=== PATIENT | male | born 1975 | race Caucasian/White ===

== ENCOUNTER 2019-01-04 14:14 | Inpatient (IN) | payer MEDICAID, OTHER ==
--- NOTE | 2019-01-04 14:10 | EDPHY ---
H & P Time Seen by Provider: 01/04/19 14:15 Constitutional: Initial Vital Signs Temperature (C) 36.7 C 01/04/19 14:14 Heart Rate 154 H 01/04/19 14:14 Respiratory Rate 24 H 01/04/19 14:14 Blood Pressure 109/82 H 01/04/19 14:14 O2 Sat (%) 100 01/04/19 14:14 O2 Delivery Mode Room Air Allergies/Adverse Reactions: No Known Allergies Allergy (Unverified 01/04/19 14:34) Home Medications: Medication Instructions Recorded NK [No Known Home Meds] 05/17/18 Medical Decision Making - Diagnostics Imaging: I viewed and interpreted images myself ED Course/Re-evaluation: CHIEF COMPLAINT: Alcohol withdrawal, vomiting blood HISTORY OF PRESENT ILLNESS: The patient is a 43 y/o male with a history of alcoholism complaining of alcohol withdrawal symptoms and vomiting blood. The patient reports that he drinks a pint of whisky daily, but stopped drinking 2 days ago. After stopping drinking, he started vomiting coffee ground blood and had black/tarry diarrhea. Due to these symptoms he called EMS. While en route to the hospital he was given 4mg IV Zofran and IV NS. No fever, headache, chest pain, heart palpitations, shortness of breath, cough, urinary complaints, numbness, paresthesias. REVIEW OF SYSTEMS: A comprehensive 10 system review of systems is otherwise negative aside from elements mentioned in the history of present illness and medical decision making. PHYSICAL EXAM: General Appearance: Pale/ashen and diaphoretic. Head: Atraumatic without scalp tenderness or obvious injury Eyes: Pale and sunken eyes. Pupils equal, round, reactive to light and accommodation, EOMI, no trauma, no injection. Ears: Clear bilaterally, no perforation, normal landmarks Nose: Atraumatic, no rhinorrhea, clear. Throat: Dried bloods on lips. There is no erythema or exudates, no lesions, normal tonsils, mucus membranes moist. Neck: Supple, 2+ carotid upstroke, nontender, no lymphadenopathy. Respiratory: No retractions, no distress, no wheezes, and no accessory muscle use. Lungs are clear to auscultation bilaterally. Cardiovascular: Tachycardic, no murmurs, rubs, or gallops. Bilateral carotid, radial, dorsalis pedis, and posterior tibial pulses intact. Good capillary refill all extremities. Gastrointestinal: Abdomen is soft, nontender, non-distended, no masses, no rebound, no guarding, no peritoneal signs. Musculoskeletal: Normal active ROM of all extremities, atraumatic. Neurological: Lethargic. The patient has normal DTRs and non-focal cranial nerves, motor, sensory, and cerebellar exam. Skin: No rashes, good turgor, no nodules on palpation. PAST MEDICAL HISTORY: Alcoholism and depression PAST SURGICAL HISTORY: Denies SOCIAL HISTORY: Lives in [place], single, employed DIAGNOSTICS/PROCEDURES/CRITICAL CARE TIME: Not indicated. DIFFERENTIAL DIAGNOSIS: The differential diagnosis for the patient's upper GI bleeding included but was not limited to normocytic anemia, ulcer disease, gastritis, Aby-Mejia tear, and esophageal varices. The differential diagnosis for the patient's elevated blood sugar included but was not limited to new onset diabetes, DKA. MEDICAL DECISION MAKING: The patient is a 43 y/o male with a history of alcoholism presenting with alcohol withdrawal symptoms and vomiting blood. The patient reports that he drinks a pint of whisky daily, but stopped drinking 2 days ago. After stopping drinking, he started vomiting coffee ground blood and had black/tarry diarrhea. On exam he is pale/ashen, diaphoretic, has dried blood on his lips, and sunken eyes. I suspect this patient has an upper GI bleed due to alcoholic gastritis. Labs ordered; patient will be type and screened. 1L IV NS, 80mg IV Protonix and 1mg IV Ativan administered. I have discussed the likelihood of needing to be admitted for the gastric bleed, the patient is comfortable with this plan. 1415: I met EMS upon arrival. 1435: Patient's hematocrit is 11.8 and his hemoglobin is 34.3. Patient's BGL is 310, he could have alcoholic ketoacidosis. 1548: Patient has normocytic anemia, hyponatremia, and an elevated BUN. Patient' s lipase is unremarkable, there is no sign of pancreatitis. Patient will need to be admitted; I have paged the hospitalist. Patient is hemodynamically stable. 1550: I consulted with Dr. Allison, hospitalist, regarding this patient. He accepts admission of this patient. I will page the yacht builder. 1558: I consulted with Dr. Dorado, yacht builder, regarding this patient. He agrees to consult on this patient. - Data Points Laboratory Results: Laboratory Results 01/04/19 14:20 01/04/19 14:20 01/04/19 01/04/19 01/04/19 14:42 14:30 14:20 WBC RBC Hgb POC Hgb 10.5 gm/dL L gm/dL (13.7-17.5) Hct POC Hct 31 % L % (40-51) MCV MCH MCHC RDW Plt Count MPV Neut % (Auto) Lymph % (Auto) [place] % (Auto) Eos % (Auto) Baso % (Auto) Nucleat RBC Rel Count Absolute Neuts (auto) Absolute Lymphs (auto) Absolute Monos (auto) Absolute Eos (auto) Absolute Basos (auto) Absolute Nucleated RBC Immature Gran % Immature Gran # RBC/WBC/PLT Morphology Platelet Estimate PT INR APTT POC Sodium 130 mEq/L L mEq/L (135-145) Sodium 127 mEq/L L mEq/L (135-145) POC Potassium 4.6 mEq/L mEq/L (3.3-5.0) Potassium 4.6 mEq/L mEq/L (3.5-5.2) POC Chloride 99 mEq/L mEq/L (97-110) Chloride 94 mEq/L L mEq/L (97-110) Carbon Dioxide 20 mEq/l L mEq/l (22-31) POC Total CO2 18 mEq/L L mEq/L (22-31) Anion Gap 13 mEq/L mEq/L (6-14) POC BUN 66 mg/dL H mg/dL (7-23) BUN 76 mg/dL H mg/dL (7-23) Creatinine 1.2 mg/dL mg/dL (0.7-1.3) POC Creatinine 1.1 mg/dL mg/dL (0.7-1.3) Estimated GFR > 60 Glucose 319 mg/dL H mg/dL (70-100) POC Glucose 310 mg/dL H mg/dL (70-100) Calcium 9.5 mg/dL mg/dL (8.5-10.4) Total Bilirubin 0.4 mg/dL mg/dL (0.1-1.4) Conjugated Bilirubin 0.2 mg/dL mg/dL (0.0-0.5) Unconjugated Bilirubin 0.2 mg/dL mg/dL (0.0-1.1) AST 19 IU/L IU/L (17-59) ALT 31 IU/L IU/L (21-72) Alkaline Phosphatase 67 IU/L IU/L (38-126) Total Protein 7.1 g/dL g/dL (6.3-8.2) Albumin 4.2 g/dL g/dL (3.5-5.0) Lipase 49 IU/L IU/L (23-300) Patient ABO/Rh A POSITIVE Antibody Screen NEGATIVE 01/04/19 01/04/19 14:20 14:20 WBC 19.51 10^3/uL H 10^3/uL (3.80-9.50) RBC 3.86 10^6/uL L 10^6/uL (4.40-6.38) Hgb 11.8 g/dL L g/dL (13.7-17.5) POC Hgb Hct 34.3 % L % (40.0-51.0) POC Hct MCV 88.9 fL fL (81.5-99.8) MCH 30.6 pg pg (27.9-34.1) MCHC 34.4 g/dL g/dL (32.4-36.7) RDW 12.6 % % (11.5-15.2) Plt Count 253 10^3/uL 10^3/uL (150-400) MPV 10.5 fL fL (8.7-11.7) Neut % (Auto) 82.2 % H % (39.3-74.2) Lymph % (Auto) 5.0 % L % (15.0-45.0) [place] % (Auto) 12.1 % % (4.5-13.0) Eos % (Auto) 0.0 % L % (0.6-7.6) Baso % (Auto) 0.1 % L % (0.3-1.7) Nucleat RBC Rel Count 0.0 % % (0.0-0.2) Absolute Neuts (auto) 16.04 10^3/uL H 10^3/uL (1.70-6.50) Absolute Lymphs (auto) 0.98 10^3/uL L 10^3/uL (1.00-3.00) Absolute Monos (auto) 2.36 10^3/uL H 10^3/uL (0.30-0.80) Absolute Eos (auto) 0.00 10^3/uL L 10^3/uL (0.03-0.40) Absolute Basos (auto) 0.02 10^3/uL 10^3/uL (0.02-0.10) Absolute Nucleated RBC 0.00 10^3/uL 10^3/uL (0-0.01) Immature Gran % 0.6 % % (0.0-1.1) Immature Gran # 0.12 10^3/uL H 10^3/uL (0.00-0.10) RBC/WBC/PLT Morphology TNP Platelet Estimate TNP PT 12.8 SEC SEC (12.0-15.0) INR 1.00 (0.83-1.16) APTT 21.6 SEC L SEC (23.0-38.0) POC Sodium Sodium POC Potassium Potassium POC Chloride Chloride Carbon Dioxide POC Total CO2 Anion Gap POC BUN BUN Creatinine POC Creatinine Estimated GFR Glucose POC Glucose Calcium Total Bilirubin Conjugated Bilirubin Unconjugated Bilirubin AST ALT Alkaline Phosphatase Total Protein Albumin Lipase Patient ABO/Rh Antibody Screen Medications Given: Discontinued Medications Sodium Chloride (Ns) 1,000 mls @ 0 mls/hr IV EDNOW ONE; Wide Open PRN Reason: Protocol Stop: 01/04/19 14:19 Last Admin: 01/04/19 14:28 Dose: 1,000 mls Lorazepam (Ativan Injection) 1 mg IVP EDNOW ONE Stop: 01/04/19 14:21 Last Admin: 01/04/19 14:28 Dose: 1 mg Pantoprazole Sodium (Protonix) 80 mg IVP EDNOW ONE Stop: 01/04/19 14:19 Last Admin: 01/04/19 14:30 Dose: 80 mg Point of Care Test Results: Chemistry 01/04/19 14:42 POC Sodium 130 mEq/L L mEq/L (135-145) POC Potassium 4.6 mEq/L mEq/L (3.3-5.0) POC Chloride 99 mEq/L mEq/L (97-110) POC Total CO2 18 mEq/L L mEq/L (22-31) POC BUN 66 mg/dL H mg/dL (7-23) POC Creatinine 1.1 mg/dL mg/dL (0.7-1.3) POC Glucose 310 mg/dL H mg/dL (70-100) ISTAT H&H 01/04/19 14:42 POC Hgb 10.5 gm/dL L gm/dL (13.7-17.5) POC Hct 31 % L % (40-51) Departure - Departure Disposition: [facility] Inpatient Acute Clinical Impression: Upper GI bleed, New onset type 2 diabetes mellitus, Normocytic anemia Alcoholic gastritis Qualifiers: Chronicity: acute Gastritis bleeding: with bleeding Qualified Code(s): K29.21 - Alcoholic gastritis with bleeding Alcohol withdrawal Qualifiers: Complication of substance-induced condition: uncomplicated Qualified Code(s): F10.230 - Alcohol dependence with withdrawal, uncomplicated Condition: Fair Referrals: Patient,NotPresent [Unknown] - As per Instructions Report Scribed for: Steven Martini Report Scribed by: Kay Morales Date of Report: 01/04/19 Time of Report: 14:16
[2019-01-04] MEDS ORDERED: NS 1,000 ML IV ONE (14:18)
[2019-01-04] MEDS ORDERED: PANTOPRAZOLE SODIUM 40 MG VIAL IVP ONE (14:18)
[2019-01-04] MEDS ORDERED: LORazepam 2 MG/ML INJ IVP ONE ×2 (14:20→16:26)
[2019-01-04 14:30] LABS: PLATELET COUNT 253 10^3/uL (150-400)
[2019-01-04 14:41] LABS: PROTIME(PATIENT) 12.8 SEC (12.0-15.0)
--- NOTE | 2019-01-04 16:34 | PDGENHP ---
History and Physical - Chief Complaint Alcohol withdrawal and bloody emesis - History of Present Illness Patient is a 43-year-old male with no known past medical history but who drinks a pt of cheep whiskey daily who presents to the emergency department with complaints of alcohol withdrawal, and coffee-ground emesis and black stools since Sunday. He says he stopped drinking on the day and shortly afterwards started throwing up coffee-grounds and having black tarry stools. He has continued to have them since that time although they have decreased in frequency. He denied any overt pain in his abdomen but did say that his stomach feels "" all twisted up". He also feels sweaty and shaky and had his last drink on Sunday as well. He does have a history of going through alcohol withdrawal if he stops drinking and is interested in quitting during our discussion in the ER. He has no known diagnosis of diabetes but he did say that his father has diabetes. He could not remember if it was type 1 or type 2 but he did say his dad got it as an adult. He has noticed that he has been more thirsty lately and urinating a lot. Otherwise he denied any fevers, chills , dysuria, chest pain or other symptoms. History Information - Allergies/Home Medication List Allergies/Adverse Reactions: No Known Allergies Allergy (Verified 01/04/19 16:12) Home Medications: NK [No Known Home Meds] 05/17/18 [Last Taken Unknown] I have personally reviewed and updated: family history, medical history, social history, surgical history - Past Medical History no pertinent PMH - Surgical History Reports: no pertinent surgical hx - Family History Positive for: diabetes type II - Social History Smoking Status: Current every day smoker Alcohol Use: Heavy Drug Use: Marijuana Review of Systems Review of Systems: ROS: 10pt was reviewed & negative except for what was stated in HPI & below Physical Exam Physical Exam: Temp Pulse Resp BP Pulse Ox 36.9 C 107 H 20 123/87 H 96 01/04/19 16:00 01/04/19 16:00 01/04/19 16:00 01/04/19 16:00 01/04/19 16:00 Constitutional: uncomfortable Eyes: PERRL Ears, Nose, Mouth, Throat: moist mucous membranes, hearing normal Cardiovascular: regular rate and rhythym Respiratory: no respiratory distress, no rales or rhonchi Gastrointestinal: normoactive bowel sounds, soft, non-tender abdomen Genitourinary: no bladder fullness, no bladder tenderness Skin: warm, normal color Musculoskeletal: full muscle strength Neurologic: AAOx3 Psychiatric: interacting appropriately, anxious Lymph, Heme, Immunologic: no cervical LAD Lab Data & Imaging Review 01/04/19 14:20 01/04/19 14:20 WBC 19.51 10^3/uL (3.80-9.50) H 01/04/19 14:20 RBC 3.86 10^6/uL (4.40-6.38) L 01/04/19 14:20 Hgb 11.8 g/dL (13.7-17.5) L 01/04/19 14:20 POC Hgb 10.5 gm/dL (13.7-17.5) L 01/04/19 14:42 Hct 34.3 % (40.0-51.0) L 01/04/19 14:20 POC Hct 31 % (40-51) L 01/04/19 14:42 MCV 88.9 fL (81.5-99.8) 01/04/19 14:20 MCH 30.6 pg (27.9-34.1) 01/04/19 14:20 MCHC 34.4 g/dL (32.4-36.7) 01/04/19 14:20 RDW 12.6 % (11.5-15.2) 01/04/19 14:20 Plt Count 253 10^3/uL (150-400) 01/04/19 14:20 MPV 10.5 fL (8.7-11.7) 01/04/19 14:20 Neut % (Auto) 82.2 % (39.3-74.2) H 01/04/19 14:20 Lymph % (Auto) 5.0 % (15.0-45.0) L 01/04/19 14:20 [place] % (Auto) 12.1 % (4.5-13.0) 01/04/19 14:20 Eos % (Auto) 0.0 % (0.6-7.6) L 01/04/19 14:20 Baso % (Auto) 0.1 % (0.3-1.7) L 01/04/19 14:20 Nucleat RBC Rel Count 0.0 % (0.0-0.2) 01/04/19 14:20 Absolute Neuts (auto) 16.04 10^3/uL (1.70-6.50) H 01/04/19 14:20 Absolute Lymphs (auto) 0.98 10^3/uL (1.00-3.00) L 01/04/19 14:20 Absolute Monos (auto) 2.36 10^3/uL (0.30-0.80) H 01/04/19 14:20 Absolute Eos (auto) 0.00 10^3/uL (0.03-0.40) L 01/04/19 14:20 Absolute Basos (auto) 0.02 10^3/uL (0.02-0.10) 01/04/19 14:20 Absolute Nucleated RBC 0.00 10^3/uL (0-0.01) 01/04/19 14:20 Immature Gran % 0.6 % (0.0-1.1) 01/04/19 14:20 Immature Gran # 0.12 10^3/uL (0.00-0.10) H 01/04/19 14:20 RBC/WBC/PLT Morphology TNP 01/04/19 14:20 Platelet Estimate TNP 01/04/19 14:20 PT 12.8 SEC (12.0-15.0) 01/04/19 14:20 INR 1.00 (0.83-1.16) 01/04/19 14:20 APTT 21.6 SEC (23.0-38.0) L 01/04/19 14:20 POC Sodium 130 mEq/L (135-145) L 01/04/19 14:42 Sodium 127 mEq/L (135-145) L 01/04/19 14:20 POC Potassium 4.6 mEq/L (3.3-5.0) 01/04/19 14:42 Potassium 4.6 mEq/L (3.5-5.2) 01/04/19 14:20 POC Chloride 99 mEq/L (97-110) 01/04/19 14:42 Chloride 94 mEq/L (97-110) L 01/04/19 14:20 Carbon Dioxide 20 mEq/l (22-31) L 01/04/19 14:20 POC Total CO2 18 mEq/L (22-31) L 01/04/19 14:42 Anion Gap 13 mEq/L (6-14) 01/04/19 14:20 POC BUN 66 mg/dL (7-23) H 01/04/19 14:42 BUN 76 mg/dL (7-23) H 01/04/19 14:20 Creatinine 1.2 mg/dL (0.7-1.3) 01/04/19 14:20 POC Creatinine 1.1 mg/dL (0.7-1.3) 01/04/19 14:42 Estimated GFR > 60 01/04/19 14:20 Glucose 319 mg/dL (70-100) H 01/04/19 14:20 POC Glucose 310 mg/dL (70-100) H 01/04/19 14:42 Calcium 9.5 mg/dL (8.5-10.4) 01/04/19 14:20 Total Bilirubin 0.4 mg/dL (0.1-1.4) 01/04/19 14:20 Conjugated Bilirubin 0.2 mg/dL (0.0-0.5) 01/04/19 14:20 Unconjugated Bilirubin 0.2 mg/dL (0.0-1.1) 01/04/19 14:20 AST 19 IU/L (17-59) 01/04/19 14:20 ALT 31 IU/L (21-72) 01/04/19 14:20 Alkaline Phosphatase 67 IU/L (38-126) 01/04/19 14:20 Total Protein 7.1 g/dL (6.3-8.2) 01/04/19 14:20 Albumin 4.2 g/dL (3.5-5.0) 01/04/19 14:20 Lipase 49 IU/L (23-300) 01/04/19 14:20 Patient ABO/Rh A POSITIVE 01/04/19 14:30 Antibody Screen NEGATIVE 01/04/19 14:30 Assessment & Plan Assessment: Alcohol withdrawal (Acute)- he admits to drinking a pt of whiskey daily with last drink Sunday. I discussed the case with the emergency room physician and he has received 1 mg of Ativan in the ER. Currently scoring a CIWA score of 8. His LFTs are normal and he has normal synthetic function based on his PT and INR. -[facility] protocol -IV thiamine, folic acid and multivitamin -aggressive hydration New onset type 2 diabetes mellitus- he has no known history of diabetes but his blood glucose in the emergency room is above 300. His anion gap is 13 but his bicarb is low at 18. -check a hemoglobin A1c -for now sliding scale insulin -check beta hydroxybutyrate Normocytic anemia- likely secondary to underlying GI bleed. Vital signs are stable and his hemoglobin is 11.8. -repeat hemoglobin at midnight and then again in the morning -treat GI bleed as below Upper GI bleed- patient sources coffee-ground emesis and black tarry stool since Sunday. Hemoglobin of 11.8. Case was discussed with the emergency room physician and Gastroenterology will be consulted. -IV PPI -NPO -GI consulted for likely endoscopy in the morning -intravenous saline Hyponatremia- likely pseudohyponatremia in the setting of hyperglycemia. Sodium corrects to 133 when adjusted for glucose of 310. He may have some element of hypovolemic hyponatremia as well in the setting of nausea and vomiting - correct blood glucose -Rehydrate with normal saline -Recheck in the morning Prophylaxis- SCDs, no heparin in the setting of GI bleed Fluids-intravenous saline Electrolytes-hyponatremia Nutrition-NPO Cor-full Dispo-inpatient for acute alcohol withdrawal and upper GI bleed
[2019-01-04] MEDS ORDERED: FLUMAZENIL 0.5 MG/5 ML MDV IVP PRN (16:38)
[2019-01-04] MEDS ORDERED: D50W 25 GM/50 ML SYR IVP PRN (16:38)
[2019-01-04] MEDS ORDERED: ACETAMINOPHEN 325 MG TAB PO PRN (16:38)
[2019-01-04] MEDS ORDERED: ONDANSETRON DISINTEGRATING 4 MG TAB PO PRN (16:38)
[2019-01-04] MEDS ORDERED: ONDANSETRON 4 MG/2 ML VIAL IVP PRN (16:38)
[2019-01-04] MEDS ORDERED: NS 500 ML IV PRN (16:38)
[2019-01-04] MEDS: NS 1,000 ML IV SCH (17:10)
[2019-01-04] MEDS: THIAMINE HCL 500 MG in NS 100 ML IV SCH (17:20)
[2019-01-04] MEDS: INSULIN LISPRO 100 UNIT/ML SC SCH (18:11)
[2019-01-04] MEDS: LORazepam 2 MG/ML INJ IVP PRN ×2 (22:35→23:22)
[2019-01-04 22:45] LABS: PLATELET COUNT 210 10^3/uL (150-400)
[2019-01-05] MEDS: LORazepam 2 MG/ML INJ IVP PRN ×2 (04:29→20:01)
[2019-01-05] MEDS: NS 1,000 ML IV SCH ×2 (04:29→16:48)
[2019-01-05 05:07] LABS: PLATELET COUNT 195 10^3/uL (150-400)
--- NOTE | 2019-01-05 06:02 | GCON ---
[f rep st] CONSULTATION REFERRING PHYSICIAN: Dr. Chowdhury CHIEF COMPLAINT: Alcohol withdrawal with hematemesis. HISTORY OF PRESENT ILLNESS: I have been asked to see this 43-year-old male in consultation by Dr. Chowdhury for evaluation of GI bleed. The patient has a history of significant alcohol use. He drinks whiskey on a daily basis. He had presented to the emergency department with complaints of alcohol withdrawal and coffee-ground emesis. He also had been having reported melenic stools since Sunday. He stopped drinking on that day and developed nausea, vomiting , and episodes of coffee-ground emesis with melenic stool. He continued to feel unwell. He reports generalized abdominal discomfortable. Feeling shaky and sweaty. Patient was hemodynamically stable, but presented to the emergency department. He is being admitted to the hospital at this time for further management of alcohol withdrawal and episode of hematemesis. PAST MEDICAL HISTORY: Remarkable for alcohol as above, otherwise negative. PAST SURGICAL HISTORY: Negative. MEDICATIONS PRIOR TO ADMISSION: None. ALLERGIES: He has no known drug allergies. FAMILY HISTORY: Negative as it pertains to chief complaint. SOCIAL HISTORY: He is a drinker as above. Does smoke daily. Also uses marijuana. REVIEW OF SYSTEMS: Negative 10 systems other than mentioned in HPI. PHYSICAL EXAM: VITAL SIGNS: 36.9, 107, respiratory rate 20, 123/87, 96% sat. GENERAL: Ill-appearing gentleman lying in bed, somewhat sleepy and lethargic. HEENT: Normocephalic, atraumatic. EOMI. NECK: Supple. No cervical adenopathy. Mucous membranes moist. LUNGS: Clear. CARDIAC: Normal S1, S2 without murmur. ABDOMEN: Soft, benign, nontender. No hepatosplenomegaly. EXTREMITIES: Without clubbing, cyanosis, edema. SKIN: Warm and dry and intact. NEUROLOGIC: Grossly nonfocal. PSYCH: Patient is appropriate, but very anxious and lethargic. LABORATORY DATA: White count 19.51, hemoglobin 11.8, hematocrit 34.3, platelets of 253. Serum sodium 127, potassium 4.6, chloride of 94, CO2 of 20, BUN of 76, with a creatinine of 1.2, with a blood sugar of 319. IMPRESSION: A 43-year-old male with significant alcohol use with alcohol withdrawal. Patient at risk for seizures and withdrawal. Patient admitted to the hospital on withdrawal protocol, IV thiamine, folic acid, and multivitamins with aggressive hydration. Patient noted to have elevated blood sugars. Patient with upper gastrointestinal bleed, suspect Aby-Mejia tear, alcoholic gastritis. RECOMMENDATIONS: Supportive care as above. Alcohol withdrawal precautions. Proceed with urgent endoscopy with Anesthesia assistance. We will follow with you. N.p.o. after midnight. IV pantoprazole 40 mg q.12. Thank you for allowing me to participate in the care of this patient. /[id number]/MODL MTDD
[2019-01-05] MEDS ORDERED: fentaNYL 100 MCG/2 ML INJ ONE (07:53)
[2019-01-05] MEDS ORDERED: PROPOFOL 200 MG/20 ML VIAL ONE (07:53)
--- NOTE | 2019-01-05 07:59 | PDANEPAE ---
ANE History of Present Illness EGD ANE Past Medical History - Cardiovascular History Hx Hypertension: No Hx Arrhythmias: No Hx Chest Pain: No Hx Coronary Artery / Peripheral Vascular Disease: No Hx CHF / Valvular Disease: No Hx Palpitations: No - Pulmonary History Hx COPD: No Hx Asthma/Reactive Airway Disease: No Hx Recent Upper Respiratory Infection: No Hx Oxygen in Use at Home: No Hx Sleep Apnea: No Pulmonary History Comment: chronic productive cough, 1/2 ppd x 22 years. - Endocrine History Hx Diabetes: No Hypothyroid: No Hyperthyroid: No Obesity: no - Renal History Hx Renal Disorders: No - Liver History Hx Hepatic Disorders: No Hepatic History Comment: hx of heavy Etoh use - Neurological & Psychiatric Hx Hx Neurological and Psychiatric Disorders: Yes Neurological / Psychiatric History Comment: Hx of depression, anxiety, no meds for years. - GI History Hx Gastrointestinal Disorders: Yes Gastrointestinal History Comment: hematemesis - Other Health History Other Health History: anemia - Chronic Pain History Chronic Pain: No - Surgical History Prior Surgeries: none ANE Review of Systems Review of Systems: ANE Patient History - Allergies Allergies/Adverse Reactions: No Known Allergies Allergy (Verified 01/04/19 16:12) - Home Medications Home Medications: NK [No Known Home Meds] 05/17/18 [Last Taken Unknown] - Anes Hx Hx Anesthesia Complications (with details): No prior anesthetics. - Smoking Hx Smoking Status: Current every day smoker (1/2 ppd for22 years.) - Alcohol Use Alcohol Use: Heavy - Family Anes Hx Family Anes Hx: none ANE Labs/Vital Signs - Labs Result Diagrams: 01/05/19 04:20 01/05/19 04:20 - Vital Signs Blood Pressure: 134/81 Heart Rate: 101 Respiratory Rate: 18 O2 Sat (%): 99 Height: 182.88 cm Weight: 77.111 kg ANE Physical Exam - Airway Neck exam: FROM Mallampati Score: Class 2 Mouth exam: normal dental/mouth exam (Upper front cap) - Pulmonary Pulmonary: clear to auscultation, other (cough with deep breaths) - Cardiovascular Cardiovascular: regular rate and rhythym, tachycardia - ASA Status ASA Status: III ANE Anesthesia Plan Anesthesia Plan: GA with mask
[2019-01-05] MEDS ORDERED: LR 1,000 ML IV ONE (08:02)
[2019-01-05] MEDS ORDERED: ALBUTEROL 3 ML DEYVIAL IH PRN (08:26)
[2019-01-05] MEDS ORDERED: fentaNYL 100 MCG/2 ML INJ IVP PRN (08:26)
[2019-01-05] MEDS ORDERED: NALOXONE HCL 0.4 MG/ML INJ IVP PRN (08:26)
--- NOTE | 2019-01-05 08:32 | GIREPORT ---
[facility] Surgical Services - Endoscopy Department Patient Name: Vernon Darby Procedure Date: 01/05/2019 7:33 AM Patient Type: Inpatient Attending MD/ ER Physician: Jah Dorado MD Procedure: Upper GI endoscopy Indications: Generalized abdominal pain, Hematemesis Providers: Jah Dorado MD Medicines: Propofol per Anesthesia Complications: No immediate complications. Description of Procedure: After obtaining informed consent, the endoscope was passed under direct vision. Throughout the procedure, the patient's blood pressure, pulse, and oxygen saturations were monitored continuously. The Endoscope was intro duced through the mouth, and advanced to the second part of duodenum. The [facility] er GI endoscopy was accomplished without difficulty. The patient tolerated th e procedure well. Findings: LA Grade C (one or more mucosal breaks continuous between tops of 2 or more mucosal folds, less than 75% circumference) esophagitis with no bleedin g was found 40 cm from the incisors. Biopsies were taken with a cold forceps for histology. A small hiatal hernia was present. Diffuse moderate inflammation characterized by congestion (edema) and erythema was found in the stomach. Biopsies were taken with a cold forc eps for histology. Diffuse moderate inflammation characterized by congestion (edema) and erythema was found in the duodenal bulb. The second portion of the duodenum was normal. Estimated Blood Loss: Estimated blood loss: none. Estimated blood loss: none. Post Op Diagnosis: - LA Grade C reflux esophagitis. Biopsied. - Small hiatal hernia. - Gastritis. Biopsied. - Duodenitis. - Normal second portion of the duodenum. Recommendation: - Await pathology results. - Use Protonix (pantoprazole) 40 mg PO daily. - Advance diet as tolerated. - Alcohol detox and withdrawal precautions per Hosptialist and protocol . - No acute GI pathology, will sign off. Please call with further quesit ons. - Thank you for allowing me to participate in the care of your patient. Attending Participation: I personally performed the entire procedure. Jah Dorado MD Jah Dorado MD 01/05/2019 8:32:00 AM This report has been signed electronicallyStnaman Dorado MD Number of Addenda: 0 Note Initiated On: 01/05/2019 7:33 AM [email or web address]
[2019-01-05] MEDS: INSULIN LISPRO 100 UNIT/ML SC SCH ×3 (08:37→17:54)
[2019-01-05] MEDS: THIAMINE HCL 500 MG in NS 100 ML IV SCH (09:35)
[2019-01-05] MEDS: PANTOPRAZOLE SODIUM 40 MG TAB PO SCH (09:36)
--- NOTE | 2019-01-05 09:58 | HOSPPROG ---
Hospitalist Progress Note Assessment/Plan: 43-year-old alcoholic who comes in with complaints of alcohol withdrawal and coffee-ground emesis and black stools since Sunday. He stopped drinking on Sunday and shortly after that noted increased symptoms. Status post EGD was notable for gastritis but no other obvious findings. # acute alcoholic withdrawal, discussion with patient he is wanting to stop alcohol together and is interested in rehab. * Continue CIWA protocol * Last drink on Sunday, generally drinks a pt of whiskey a day * He has a supportive family at the bedside. # upper GI bleed with acute blood loss anemia secondary to gastritis. Does not need transfusion and no ongoing bleeding noted * Protonix daily Dispo: pt still tremulous today and at risk for WD seizures. CM talking with family about rehab possibilities and pt disposition depends on his ETOH withdrawal. Subjective: Patient new to me and chart reviewed. Still a little bit out of it post endoscopy and complains of some abdominal pain. Objective: Vital Signs Temp Pulse Resp BP Pulse Ox 36.6 C 87 18 122/62 H 96 01/05/19 08:59 01/05/19 08:59 01/05/19 08:59 01/05/19 08:59 01/05/19 08:59 Laboratory Results 01/05/19 04:20 01/05/19 04:20 01/04/19 01/05/19 01/06/19 05:59 05:59 05:59 Intake Total 1000 Output Total 1000 600 Balance 0 -600 PT 12.8 SEC (12.0-15.0) 01/04/19 14:20 INR 1.00 (0.83-1.16) 01/04/19 14:20 - Physical Exam Constitutional: uncomfortable, unkempt Eyes: PERRL, anicteric sclera Ears, Nose, Mouth, Throat: moist mucous membranes Cardiovascular: regular rate and rhythym Respiratory: no respiratory distress, clear to auscultation Gastrointestinal: tenderness (Mild central abdomen no guarding or rebound) Genitourinary: no bladder fullness Skin: normal color Neurologic: AAOx3, other (Slight tremor) Psychiatric: interacting appropriately ICD10 Worksheet Patient Problems: Problems Problem Status Onset Upper GI bleed Acute Alcoholic gastritis Acute New onset type 2 diabetes mellitus Acute Alcohol withdrawal Acute Normocytic anemia Acute
--- NOTE | 2019-01-05 11:25 | PDMN ---
Medical Necessity Medical necessity: MCG: M180 U GIB: 43 yo M presents with coffee ground emesis , black tarry stools, ETOH usage, DM2, hyponatremia ( 127) glucose 319, , pt will be started on CIWA, urgent endoscopy, H/H 11.8/34.3, 9.7/27.7 - anticipate > 2 MN ongoing med nec care
--- NOTE | 2019-01-05 11:26 | POSTANESTH ---
Post Anesthetic Evaluation Cardiovascular Status: Normal, Stable Respiratory Status: Similar to Pre-op Cond. Level of Consciousness/Mental Status: Can Participate in Eval Pain Control: Adequate, Prn Tx Ordered Nausea/Vomiting Control: Adequate, Prn Tx Ordered Complications Possibly Related to Anesthesia: None Noted
--- NOTE | 2019-01-05 15:33 | ASMTCAGE ---
CAGE Do you feel you ought to Answers: Yes cut down on your drinking or drug use? Do people annoy you by Answers: No criticizing your drinking or drug use? Do you feel guilty about Answers: Yes your drinking or drug use? Do you drink or use drugs Answers: No first thing in the morning ([employer])? Date Signed: 01/05/2019 03:32 PM Electronically Signed By:Angelica Franklin
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
[2019-01-06] MEDS: NS 1,000 ML IV SCH (05:33)
[2019-01-06] MEDS: LORazepam 2 MG/ML INJ IVP PRN (05:39)
[2019-01-06] MEDS: INSULIN LISPRO 100 UNIT/ML SC SCH ×3 (08:33→18:23)
[2019-01-06] MEDS: PANTOPRAZOLE SODIUM 40 MG TAB PO SCH (09:58)
[2019-01-06] MEDS: THIAMINE HCL 500 MG in NS 100 ML IV SCH (09:59)
--- NOTE | 2019-01-06 15:37 | HOSPPROG ---
Hospitalist Progress Note Assessment/Plan: # UGIB - d/t gastritis or esophagitis, s/p EGD - cont protonix # etOH dependence, withdrawal - does not seem to be withdrawing significantly - consider naltrexone and acamprosate Subjective: almost tearful when i am talkiong to him; we discussed his addiction to alcohol and his depression Objective: Vital Signs Temp Pulse Resp BP Pulse Ox 37.2 C 86 16 130/71 H 97 01/06/19 15:31 01/06/19 15:31 01/06/19 15:31 01/06/19 15:31 01/06/19 15:31 Laboratory Results 01/05/19 04:20 01/05/19 04:20 01/05/19 01/06/19 01/07/19 05:59 05:59 05:59 Intake Total 1000 1582 Output Total 1000 600 400 Balance 0 982 -400 PT 12.8 SEC (12.0-15.0) 01/04/19 14:20 INR 1.00 (0.83-1.16) 01/04/19 14:20 - Physical Exam Constitutional: no apparent distress, appears nourished Eyes: anicteric sclera Ears, Nose, Mouth, Throat: hearing normal Cardiovascular: No edema Respiratory: no respiratory distress Gastrointestinal: No distension Genitourinary: No ramirez in urethra Skin: warm Musculoskeletal: full muscle strength Neurologic: AAOx3 Psychiatric: not anxious ICD10 Worksheet Patient Problems: Problems Problem Status Onset Upper GI bleed Acute Alcoholic gastritis Acute New onset type 2 diabetes mellitus Acute Alcohol withdrawal Acute Normocytic anemia Acute
[2019-01-06] MEDS: NALTREXONE HCL 50 MG TAB PO SCH (16:34)
[2019-01-06] MEDS: ACAMPROSATE CALCIUM 333 MG TAB PO SCH (18:31)
[2019-01-07] MEDS: PANTOPRAZOLE SODIUM 40 MG TAB PO SCH (08:25)
[2019-01-07] MEDS: ACAMPROSATE CALCIUM 333 MG TAB PO SCH ×2 (08:25→12:38)
[2019-01-07] MEDS: NALTREXONE HCL 50 MG TAB PO SCH (08:25)
[2019-01-07] MEDS: INSULIN LISPRO 100 UNIT/ML SC SCH ×2 (08:28→12:29)
[2019-01-07] MEDS ORDERED: THIAMINE HCL 100 MG TAB PO SCH (09:00)
[2019-01-07 11:42] VITALS: BP 133/76
--- NOTE | 2019-01-07 13:14 | GDS ---
[f rep st] DISCHARGE SUMMARY FINAL DIAGNOSES: 1. Upper gastrointestinal bleed. 2. Gastritis. 3. Duodenitis. 4. Reflux esophagitis. STUDIES PENDING AT THE TIME OF DISCHARGE: Pathology from upper endoscopy biopsies. HOSPITAL COURSE: 43-year-old man with a history of alcohol abuse, presents with hematemesis. He und erwent an EGD which showed gastritis and esophagitis. GI recommended Protonix. Pathology is pending at the time of discharge. He had mild alcohol withdrawal, he did receive some Ativan. He is very concerned about this and is s triving for sobriety. He has a very involved family. He will be discharged to stay with his mother. They are looking into multiple rehabilitation options. I prescribed him naltrexone as well as acam prosate. Discussed side effects and warnings of these medications. He is amenable to taking them. He has requested a referral to see a social work case manager given some toe pain. I have given him referrals to s delphine Beltran as well as Dr. Iniguez. FOLLOWUP: 1. Primary care physician for ongoing management of his alcohol use. 2. Podiatry as needed. 3. Has an appointment scheduled with [facility] on January 14 at 9 a.m. BILLING: I spent more than 30 minutes on the day of discharge coordinating care. /[id number]/MODL
--- NOTE | 2019-01-07 14:01 | ASMTDCNOTE ---
Case Management Discharge Discharge Order Complete? Answers: Yes Patient to Obtain Answers: via Family Medications Transportation Arranged Answers: Family/Friends Transport will Pick (Date 01/07/2019 12:00 AM & Time) Family Notified Answers: Yes Notes: mother in the room Discharge Comments Notes: Pt to discharge independently to mother's home. CM gave pt list of AA meetings today and tomorrow as well and link to the AA website. CM also made follow up appointments for pt with [facility] and [facility]. [employer] enrolled pt in medicaid as well. Pt also connected with [facility]. No further CM needs noted at this time. Date Signed: 01/07/2019 01:58 PM Electronically Signed By:Angelica Franklin
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
== END 2019-01-07 14:30 | disposition home or self-care (01) | DRG 378 ==
LOC: EDUNIT# → OBSVTOIN 15:52 → F3E 16:54
PROVIDERS: ADMIT Internal Medicine; ATTEND Internal Medicine
DX: K92.2 Gastrointestinal hemorrhage, unspecified (principal); F10.239 Alcohol dependence with withdrawal, unspecified; K29.70 Gastritis, unspecified, without bleeding; K44.9 Diaphragmatic hernia without obstruction or gangrene; K21.0 Gastro-esophageal reflux disease with esophagitis; E86.9 Volume depletion, unspecified; K29.80 Duodenitis without bleeding; E11.9 Type 2 diabetes mellitus without complications; D64.9 Anemia, unspecified; R05 Cough; F41.9 Anxiety disorder, unspecified; F32.9 Major depressive disorder, single episode, unspecified
CPT/HCPCS: 82435-PO; 82565-PO; 82947-PO; 84132-PO; 84295-PO; 84520-PO; 85014-ER; 96374; 97165-GO; J2060; J2405; J2704; J3010; J3411